=== PATIENT | male | born 1955 | race Hispanic/Latino ===

== ENCOUNTER 2020-01-10 07:12 | Day surgery (SDC) | payer MEDICARE ==
[~2020-01-10 07:12] MED LIST: ASPIRIN81 MG PO; CIPROFLOXACN500 MG PO; LISINOPRIL5 MG PO; LORTAB 7.57.5 MG PO; METFORMIN500 MG PO; METRONIDAZOL500 MG PO; NYSTATIN TOP; PRAVACHOL40 MG PO; PRAVASTATIN20 MG PO; [UNRECOGNIZED DRUG - REMARK]
[2020-01-10] MEDS ORDERED: PERCOCET 5/325M1 TAB PO (09:51)
[2020-01-10 10:43] VITALS: BP 152/90
== END 2020-01-10 11:05 | disposition home or self-care (01) ==
LOC: ORM 07:12
PROVIDERS: ATTEND Surgery
PROC: 0YU60JZ Supplement Left Inguinal Region with Synthetic Substitute, Open Approach (ICD-10-PCS; principal; 2020-01-10)
DX: K40.90 Unilateral inguinal hernia, without obstruction or gangrene, not specified as recurrent (principal); I10 Essential (primary) hypertension; E11.9 Type 2 diabetes mellitus without complications; Z79.84 Long term (current) use of oral hypoglycemic drugs; Z11.59 Encounter for screening for other viral diseases
CPT/HCPCS: C9290; J0131

== ENCOUNTER 2021-05-02 07:22 | Day surgery (SDC) | payer MEDICARE ==
[~2021-05-02] VITALS: Ht 177.8 cm; Wt 77.1 kg
[~2021-05-02 07:22] MED LIST changes: +ASPIRIN 81 LOW81 MG PO; +PERCOCET 5/325M1 TAB PO
[2021-05-02] MEDS ORDERED: EYE DROP OU (07:36)
[2021-05-02 09:38] VITALS: BP 140/71
== END 2021-05-02 10:00 | disposition home or self-care (01) ==
LOC: ENDO 07:22 → ORM 08:45 → ENDO 10:00
PROVIDERS: ATTEND Surgery
PROC: 0DBN8ZX Excision of Sigmoid Colon, Via Natural or Artificial Opening Endoscopic, Diagnostic (ICD-10-PCS; principal; 2021-05-02)
PROC: 0DBL8ZX Excision of Transverse Colon, Via Natural or Artificial Opening Endoscopic, Diagnostic (ICD-10-PCS; 2021-05-02)
DX: Z12.11 Encounter for screening for malignant neoplasm of colon (principal); D12.5 Benign neoplasm of sigmoid colon; D12.3 Benign neoplasm of transverse colon; K64.8 Other hemorrhoids; E11.9 Type 2 diabetes mellitus without complications; E78.5 Hyperlipidemia, unspecified; Z79.84 Long term (current) use of oral hypoglycemic drugs; Z86.010 Personal history of colon polyps